=== PATIENT | female | born 2000 | race Hispanic/Latino ===

== ENCOUNTER 2020-03-31 12:16 | Outpatient (CLI) | payer OTHER ==
[2020-04-01 11:48] LABS: SARS-CoV-2 PCR by NAA Not Detected (NotDetected)
== END 2020-03-31 12:17 | disposition home or self-care (01) ==
LOC: LABBT 12:16
PROVIDERS: ATTEND Family Medicine
DX: Z01.812 Encounter for preprocedural laboratory examination (principal); Z20.822 Contact with and (suspected) exposure to COVID-19
CPT/HCPCS: 87635; U0003; U0005